=== PATIENT | male | born 1965 | race Caucasian/White ===

== ENCOUNTER 2019-02-14 09:38 | Inpatient (IN) ==
[2019-02-14] MEDS ORDERED: PANTOPRAZOLE 40 MG VIAL IV STA (10:14)
[2019-02-14] MEDS ORDERED: SODIUM CHLORIDE 0.9% 500 ML IV STA (10:14)
[2019-02-14] MEDS ORDERED: ONDANSETRON 4 MG/2 ML VIAL IV STA (10:14)
[2019-02-14 10:15] LABS: Basophils # 0.1 10*3/uL (0.0-0.2); Basophils % 0.2 % (0.0-0.8); Eosinophils % 0.1 % (0.00-10.9); Hematocrit 19.9 VOL% (42.0-52.0); Hemoglobin 6.6 GM/DL (14.0-18.0); Immature Granulocytes % 3.1 %; Immature Granulocytes Absolute 0.69 #; Lymphocytes # 2.1 10*3/uL (1.4-4.0); Lymphocytes % 9.4 % (21.2-54.2); Mean Corpuscular HGB Conc 33.2 GM/DL (32-36); Mean Corpuscular Volume 91.7 FL (87-102); Mean Platelet Volume 8.7 FL (9.6-12.0); Monocytes % 7.1 % (1.7-12.7); NRBC # 0.03 10*3/uL; Neutrophils % 80.1 % (38.7-73.9); Platelet Count 591 T/CUMM (130-400); Red Blood Count 2.17 MC/CUMM (3.8-5.5); White Blood Count 22.3 T/CUMM (4-12)
[2019-02-14 10:24] LABS: INR 0.9
[2019-02-14 10:28] LABS: Albumin 2.6 G/DL (3.4-5.0); Bilirubin,Total 0.5 MG/DL (0.2-1.0); Calcium 8.8 MG/DL (8.5-10.1); Osmolality,Calculated 259.8 MOS/KG (273-304); Total Protein 6.7 G/DL (6.4-8.3)
[2019-02-14 10:33] LABS: Lymphocytes 7 % (20-55); Platelet Estimate Increased; Segmented Neutrophils 90 % (50-85); Total Cells Counted 100
[2019-02-14 10:34] LABS: Hypochromasia 1+; Ovalocytes Slight
[2019-02-14] MEDS ORDERED: HYDROmorphone 2 MG/1 ML VIAL IV STA (11:18)
[2019-02-14] MEDS ORDERED: PIPERACILLIN/TAZOBACTAM 3,375 MG in SODIUM CHLORIDE 0.9% 100 ML IV STA (11:24)
[2019-02-14] MEDS ORDERED: ALBUTEROL 2.5 MG/3 ML NEB RESP TX PRN (12:07)
[2019-02-14] MEDS ORDERED: NICOTINE 21 MG/24 HR PATCH TRANSDERM PRN (12:07)
[2019-02-14] MEDS ORDERED: HALOPERIDOL 5 MG/ML AMP IM PRN (12:11)
[2019-02-14] MEDS ORDERED: SODIUM CHLORIDE 0.9% 1,000 ML IV PRN (12:12)
[2019-02-14] MEDS ORDERED: GLUCAGON 1 MG VIAL IM PRN (12:14)
[2019-02-14] MEDS ORDERED: DEXTROSE 10% 250 ML BAG IV PRN (12:14)
[2019-02-14] MEDS ORDERED: SIMETHICONE CHEW 125 MG TABLET PO PRN (15:18)
[2019-02-14] MEDS: GABAPENTIN 100 MG CAPSULE PO SCH ×2 (15:30→20:13)
[2019-02-14] MEDS: SODIUM CHLORIDE 0.9% 1,000 ML IV SCH (16:54)
[2019-02-14] MEDS: PIPERACILLIN/TAZOBACTAM 3,375 MG in SODIUM CHLORIDE 0.9% 100 ML IV SCH (16:54)
[2019-02-14] MEDS: PANTOPRAZOLE 40 MG VIAL IV SCH (16:54)
[2019-02-14] MEDS: MORPHINE 4 MG/1 ML VIAL IV PRN ×2 (16:56→20:11)
[2019-02-14] MEDS: INSULIN LISPRO 100 UNIT/ML SUBCUT SCH ×2 (18:06→23:55)
[2019-02-14] MEDS: ONDANSETRON 4 MG/2 ML VIAL IV PRN (20:11)
[2019-02-14] MEDS: ACETAMINOPHEN 325 MG TABLET PO PRN (20:12)
[2019-02-15] MEDS: MORPHINE 4 MG/1 ML VIAL IV PRN ×5 (00:14→22:57)
[2019-02-15] MEDS: PANTOPRAZOLE 40 MG VIAL IV SCH ×3 (00:14→23:57)
[2019-02-15] MEDS: PIPERACILLIN/TAZOBACTAM 3,375 MG in SODIUM CHLORIDE 0.9% 100 ML IV SCH ×3 (01:57→17:09)
[2019-02-15 02:03] LABS: Hematocrit 23.5 VOL% (42.0-52.0); Hemoglobin 7.8 GM/DL (14.0-18.0)
[2019-02-15 02:03] LABS: Basophils # 0.1 10*3/uL (0.0-0.2); Basophils % 0.3 % (0.0-0.8); Eosinophils # 0.1 10*3/uL (0.0-0.87); Eosinophils % 0.5 % (0.00-10.9); Hematocrit 23.2 VOL% (42.0-52.0); Hemoglobin 7.6 GM/DL (14.0-18.0); Immature Granulocytes % 2.6 %; Immature Granulocytes Absolute 0.46 #; Lymphocytes # 2.5 10*3/uL (1.4-4.0); Lymphocytes % 14.2 % (21.2-54.2); Mean Corpuscular HGB Conc 32.8 GM/DL (32-36); Mean Corpuscular Volume 90.3 FL (87-102); Mean Platelet Volume 8.7 FL (9.6-12.0); Monocytes % 8.3 % (1.7-12.7); NRBC # 0.04 10*3/uL; Neutrophils % 74.1 % (38.7-73.9); Platelet Count 504 T/CUMM (130-400); Red Blood Count 2.57 MC/CUMM (3.8-5.5); Red Cell Distribution Width 14.3 % (9.3-17.3); White Blood Count 17.7 T/CUMM (4-12)
[2019-02-15 02:32] LABS: Albumin 2.5 G/DL (3.4-5.0); Bilirubin,Total 0.4 MG/DL (0.2-1.0); Calcium 8.6 MG/DL (8.5-10.1); Osmolality,Calculated 259.7 MOS/KG (273-304); Total Protein 6.3 G/DL (6.4-8.3)
[2019-02-15] MEDS: SODIUM CHLORIDE 0.9% 1,000 ML IV SCH ×3 (04:44→21:16)
[2019-02-15] MEDS: INSULIN LISPRO 100 UNIT/ML SUBCUT SCH ×2 (05:52→12:37)
[2019-02-15] MEDS: FLUoxetine 20 MG CAPSULE PO SCH (10:34)
[2019-02-15] MEDS: amLODIPine 10 MG TABLET PO SCH (10:34)
[2019-02-15] MEDS: GABAPENTIN 100 MG CAPSULE PO SCH ×3 (10:34→20:42)
[2019-02-15] MEDS: LISINOPRIL 20 MG TABLET PO SCH (10:34)
[2019-02-15 12:58] LABS: Hematocrit 30.8 VOL% (42.0-52.0); Hemoglobin 10.2 GM/DL (14.0-18.0)
[2019-02-15] MEDS: ONDANSETRON 4 MG/2 ML VIAL IV PRN ×2 (14:40→19:39)
[2019-02-15 19:58] LABS: Hematocrit 31.2 VOL% (42.0-52.0); Hemoglobin 10.3 GM/DL (14.0-18.0)
[2019-02-15] MEDS: traZODone 50 MG TABLET PO PRN (23:57)
[2019-02-16] MEDS: MORPHINE 4 MG/1 ML VIAL IV PRN ×3 (02:09→14:18)
[2019-02-16] MEDS: PIPERACILLIN/TAZOBACTAM 3,375 MG in SODIUM CHLORIDE 0.9% 100 ML IV SCH ×3 (02:29→17:54)
[2019-02-16 04:41] LABS: Basophils # 0.1 10*3/uL (0.0-0.2); Basophils % 0.5 % (0.0-0.8); Eosinophils # 0.1 10*3/uL (0.0-0.87); Eosinophils % 0.9 % (0.00-10.9); Hematocrit 30.1 VOL% (42.0-52.0); Hemoglobin 10.1 GM/DL (14.0-18.0); Immature Granulocytes % 4.5 %; Immature Granulocytes Absolute 0.71 #; Lymphocytes # 2.8 10*3/uL (1.4-4.0); Lymphocytes % 17.6 % (21.2-54.2); Mean Corpuscular HGB Conc 33.6 GM/DL (32-36); Mean Corpuscular Volume 90.1 FL (87-102); Mean Platelet Volume 8.4 FL (9.6-12.0); Monocytes % 6.4 % (1.7-12.7); NRBC # 0.05 10*3/uL; Neutrophils % 70.1 % (38.7-73.9); Platelet Count 569 T/CUMM (130-400); Red Blood Count 3.34 MC/CUMM (3.8-5.5); Red Cell Distribution Width 14.7 % (9.3-17.3); White Blood Count 15.9 T/CUMM (4-12)
[2019-02-16 05:04] LABS: Calcium 9.2 MG/DL (8.5-10.1); Osmolality,Calculated 263.5 MOS/KG (273-304)
[2019-02-16] MEDS: ACETAMINOPHEN 325 MG TABLET PO PRN (05:12)
[2019-02-16 05:21] LABS: Anisocytosis Slight; Band Neutrophils 2 % (0-10); Eosinophils 2 % (0-10); Lymphocytes 20 % (20-55); Macrocytosis Slight; Metamyelocytes 3 %; Platelet Estimate Increased; Segmented Neutrophils 69 % (50-85); Total Cells Counted 100
[2019-02-16] MEDS: SODIUM CHLORIDE 0.9% 1,000 ML IV SCH (08:06)
[2019-02-16] MEDS: LISINOPRIL 20 MG TABLET PO SCH (08:52)
[2019-02-16] MEDS: GABAPENTIN 100 MG CAPSULE PO SCH ×3 (08:52→21:11)
[2019-02-16] MEDS: FLUoxetine 20 MG CAPSULE PO SCH (08:52)
[2019-02-16] MEDS: amLODIPine 10 MG TABLET PO SCH (08:52)
[2019-02-16 11:54] LABS: Hematocrit 31.4 VOL% (42.0-52.0); Hemoglobin 10.5 GM/DL (14.0-18.0)
[2019-02-16] MEDS: PANTOPRAZOLE 40 MG VIAL IV SCH (13:35)
[2019-02-16 20:43] LABS: Hematocrit 28.8 VOL% (42.0-52.0); Hemoglobin 9.7 GM/DL (14.0-18.0)
[2019-02-16] MEDS: TRIHEXYPHENIDYL 2 MG PO SCH (21:08)
[2019-02-17] MEDS: PANTOPRAZOLE 40 MG VIAL IV SCH ×3 (01:09→23:31)
[2019-02-17] MEDS: PIPERACILLIN/TAZOBACTAM 3,375 MG in SODIUM CHLORIDE 0.9% 100 ML IV SCH ×3 (02:39→18:58)
[2019-02-17] MEDS ORDERED: LIDOCAINE 100 MG/5 ML SYRINGE ONE (09:00)
[2019-02-17] MEDS ORDERED: PROPOFOL 200 MG/20 ML VIAL IV ONE (09:00)
[2019-02-17] MEDS: LACTATED RINGERS 1,000 ML IV SCH (09:29)
[2019-02-17] MEDS: FLUoxetine 20 MG CAPSULE PO SCH (11:11)
[2019-02-17] MEDS: ONDANSETRON 4 MG/2 ML VIAL IV PRN (11:12)
[2019-02-17] MEDS: MORPHINE 4 MG/1 ML VIAL IV PRN ×3 (11:13→20:45)
[2019-02-17] MEDS: amLODIPine 10 MG TABLET PO SCH (11:14)
[2019-02-17] MEDS: LISINOPRIL 20 MG TABLET PO SCH (11:14)
[2019-02-17] MEDS: GABAPENTIN 100 MG CAPSULE PO SCH ×3 (11:14→20:44)
[2019-02-17] MEDS: TRIHEXYPHENIDYL 2 MG PO SCH ×2 (11:15→21:10)
[2019-02-17] MEDS: SUCRALFATE 1 GM TABLET PO SCH ×2 (11:51→17:44)
[2019-02-17] MEDS: SUCRALFATE 1 GM/10 ML UDCUP PO SCH ×2 (17:58→20:44)
[2019-02-17] MEDS: traZODone 50 MG TABLET PO PRN (23:44)
[2019-02-18] MEDS: PIPERACILLIN/TAZOBACTAM 3,375 MG in SODIUM CHLORIDE 0.9% 100 ML IV SCH ×2 (03:28→10:03)
[2019-02-18 04:55] LABS: Basophils # 0.1 10*3/uL (0.0-0.2); Basophils % 0.6 % (0.0-0.8); Eosinophils # 0.2 10*3/uL (0.0-0.87); Eosinophils % 1.2 % (0.00-10.9); Hematocrit 32.2 VOL% (42.0-52.0); Hemoglobin 10.4 GM/DL (14.0-18.0); Immature Granulocytes % 2.7 %; Immature Granulocytes Absolute 0.35 #; Lymphocytes # 2.5 10*3/uL (1.4-4.0); Lymphocytes % 19.4 % (21.2-54.2); Mean Corpuscular HGB Conc 32.3 GM/DL (32-36); Mean Corpuscular Volume 91.7 FL (87-102); Mean Platelet Volume 8.6 FL (9.6-12.0); Monocytes % 10.4 % (1.7-12.7); Neutrophils % 65.7 % (38.7-73.9); Platelet Count 622 T/CUMM (130-400); Red Blood Count 3.51 MC/CUMM (3.8-5.5)
[2019-02-18] MEDS: MORPHINE 4 MG/1 ML VIAL IV PRN ×2 (04:59→08:45)
[2019-02-18 05:08] LABS: Calcium 9.6 MG/DL (8.5-10.1)
[2019-02-18] MEDS ORDERED: INDOCYANINE GREEN 25 MG VIAL IV ONE (06:00)
[2019-02-18] MEDS ORDERED: cefOXitin 2,000 MG in SYRINGE 1 EACH IV ONE (06:00)
[2019-02-18] MEDS: SUCRALFATE 1 GM/10 ML UDCUP PO SCH ×2 (08:41→11:51)
[2019-02-18] MEDS: GABAPENTIN 100 MG CAPSULE PO SCH ×2 (08:43→15:27)
[2019-02-18] MEDS: amLODIPine 10 MG TABLET PO SCH (08:43)
[2019-02-18] MEDS: LISINOPRIL 20 MG TABLET PO SCH (08:44)
[2019-02-18] MEDS: LACTATED RINGERS 1,000 ML IV SCH (08:44)
[2019-02-18] MEDS: FLUoxetine 20 MG CAPSULE PO SCH (08:52)
[2019-02-18] MEDS: TRIHEXYPHENIDYL 2 MG PO SCH (08:53)
[2019-02-18] MEDS: PANTOPRAZOLE 40 MG VIAL IV SCH (11:51)
[2019-02-18 15:35] VITALS: BP 138/72
== END 2019-02-18 16:02 | DRG 378 ==
LOC: EDUNIT# → EDBD → N.ED 09:38 → N.EDINP 12:08 → SUATTDRO 12:08 → N.ICU 12:25 → N.5E 02-16 12:38
PROVIDERS: ADMIT Internal Medicine; ATTEND Family Medicine